=== PATIENT | female | born 2000 | race Caucasian/White ===

== ENCOUNTER 2024-12-23 15:27 | Emergency (ER) | payer OTHER ==
[~2024-12-23] VITALS: Ht 160 cm; Wt 50.8 kg
--- NOTE | ~2024-12-23 | EKG ---
[facility] [address] [place], [place] [address] Draft EK completed, results pending confirmation PATIENT NAME: PRADEEP ADAM Electrocardiogram DATE OF : 89 PHYSICIAN: PRELIMINARY REPORT #: [id number] REPORT IS CONFIDENTIAL AND NOT TO BE RELEASED WITHOUT AUTHORIZATION
[2024-12-23 16:50] VITALS: BP 111/74
== END 2024-12-23 16:50 | disposition left against medical advice (07) ==
LOC: ED 15:27
DX: R07.9 Chest pain, unspecified (principal); R06.02 Shortness of breath; Z53.21 Procedure and treatment not carried out due to patient leaving prior to being seen by health care provider
CPT/HCPCS: 93005; 93010